=== PATIENT | male | born 1955 | race Caucasian/White ===

== ENCOUNTER 2018-01-31 23:21 | Emergency (ER) | payer SELFPAY ==
--- NOTE | 2018-01-31 23:29 | ED.RN ---
PT CAME IN A FULL ARREST. ACLS CARE WAS BEING ADMINISTERED PRIOR TO 2300 ON SCENE VIA EMS WITH ARRIVAL IN THE ED AT 2321. TIME OF CALLED AT 232. DR. MACIAS NOTIFYING SON
--- NOTE | 2018-01-31 23:39 | ED.DCSUM_ITS ---
- ER Visit Summary Date of Service: 01/31/18 Chief Complaint: [] Cardiac arrest History of Present Illness: The patient is a 62 M reported hemoptysis at home with a lot of blood in the toilet. EMS called and patient had arrested. They stated he was in asystole for 30 minutes prior to arrival. They did CPR and 3 doses of epinephrine and they did defibrillate once with no success. They were unable to establish an airway. They stated the patient had a history of lung cancer and coronary artery disease. They are unsure of his medications. He stated that he continued to have hemoptysis Physical Examination: [] Cardiac arrest no vital signs Positive blood from his airway. No gag reflex. Cardiovascular no pulse. Head exam shows no trauma. Pupils are dilated at 5 mm. No response to light. No heart sounds noted. No spontaneous respiratory sounds neurologic GCS is 3 Test Results: [] Emergency Department Course and Treatment: [] CPR continued on arrival. He is asystole. He was given 2 doses of epinephrine 1 of bicarb and 1 of D50. Patient remained in asystole while in the department. He was intubated on arrival. There was blood from the airway which was suctioned. Intubation was without complication other than his bleeding. ACLS protocol was done with no return of spontaneous circulation. Ultrasound was placed on the patient's heart with no spontaneous movement of his heart chambers. Discussed with the family. Resuscitation was then stopped Treatment Plan: [] Disposition: [] Impression: [] Cardiac arrest Hemoptysis Critical care time 30 minutes This note was generated with [employer] dictation software. It may contain incorrect words, spelling, and punctuation that were not noted in review of the chart prior to signing ED Disposition - Plan for ED Patient: Chief Complaint: CPR
--- NOTE | 2018-02-01 00:40 | ED.RN ---
family left at this time
--- NOTE | 2018-02-01 00:50 | ED.RN ---
saline drops applied to patients eyes eyes tapes shut ice pack applied to the eyes
--- NOTE | 2018-02-01 00:57 | ED.RN ---
patient to the [facility] at this time
--- NOTE | 2018-02-01 01:20 | ED.RN ---
family contact information gilmar araujo [phone] [facility] [place] [phone]
== END 2018-02-01 00:57 ==
LOC: ED 23:28
PROVIDERS: Emergency Provider Emergency Medicine
DX: I46.9 Cardiac arrest, cause unspecified (principal); R04.2 Hemoptysis; C34.90 Malignant neoplasm of unspecified part of unspecified bronchus or lung; I25.10 Atherosclerotic heart disease of native coronary artery without angina pectoris
CPT/HCPCS: 31500; 92950; J7030; A4216